=== PATIENT | female | born 1995 | race Caucasian/White ===

== ENCOUNTER 2022-02-18 07:24 | Outpatient (CLI) | payer BC ==
[2022-02-18 08:51] LABS: #Basophils 0.1 10x3/uL (0.0-0.2); #Eosinphils 0.3 10x3/uL (0.0-0.5); #Monocytes 0.4 10x3/uL (0.0-1.1); #Neutrophils 4.3 10x3/uL (1.5-8.4); %Basophils 0.7 % (0.0-2.0); %Eosinophils 3.9 % (0.0-6.0); %Lymphocytes 27.9 % (18.0-47.0); %Monocytes 6.2 % (0.0-10.0); Mean Corpuscular HGB CONC 33.2 g/dL (32.0-36.0); Mean Corpuscular Hemoglobin 29.3 pg (27.0-33.0); Mean Corpuscular Volume 88.5 fl (81.6-98.3); Mean Platelet Volume 9.6 fl (7.4-10.4); Platelet Count 302 10x3/uL (150-450); RBC Distribution Width 13.6 % (11.5-14.5); Red Blood Cell (RBC) Count 4.43 10x6/uL (3.90-5.03); White Blood Cell (WBC) Count 7.1 10x3/uL (3.5-10.5)
[2022-02-18 09:05] LABS: BHCG - Serum Negative (NEGATIVE); Pregs Control Background? CLEAR/WHITE (CLR/WHITE); Pregs Control Bar Appear? YES (CONTROL BAR)
[2022-02-18 09:10] LABS: ALT (SGPT) 21 U/L (8-55); AST (SGOT) 20 U/L (5-34); Albumin 4.3 g/dL (3.5-5.0); Alkaline Phosphatase 62 U/L (40-110); Bilirubin, Direct 0.1 mg/dL (0.1-0.3); Bilirubin, Total 0.4 mg/dL (0.2-1.2); Protein, Total 7.1 g/dL (6.0-8.3)
== END 2022-02-18 07:25 | disposition home or self-care (01) ==
LOC: LABBT 07:24
PROVIDERS: ATTEND Surgery
DX: Z01.812 Encounter for preprocedural laboratory examination (principal); K80.20 Calculus of gallbladder without cholecystitis without obstruction
CPT/HCPCS: 80076; 84703; 85025